=== PATIENT | male | born 1975 ===

== ENCOUNTER 2020-05-04 19:59 | Emergency (ER) | payer OTHER ==
[~2020-05-04] VITALS: Ht 177.8 cm; Wt 117.9 kg
[2020-05-04] MEDS ORDERED: LIPITOR40 MG PO (20:20)
[2020-05-04] MEDS ORDERED: FORTAMET500 MG PO (20:20)
[2020-05-04] MEDS ORDERED: ALTACE10 MG PO (20:21)
[2020-05-04] MEDS ORDERED: RESTORIL15 M1 (20:21)
== END 2020-05-05 00:01 | disposition home or self-care (01) ==
LOC: ER 19:59 → CPU-OBS 20:58 → ER 20:58
DX: J02.8 Acute pharyngitis due to other specified organisms (principal); R07.89 Other chest pain; Z20.822 Contact with and (suspected) exposure to COVID-19; S00.03XS Contusion of scalp, sequela; W22.8XXS Striking against or struck by other objects, sequela
CPT/HCPCS: 71250; 93005; 82805; 36600; G0378; G0379

== ENCOUNTER 2023-04-29 07:51 | Outpatient (CLI) | payer OTHER ==
[~2023-04-29 07:51] MED LIST: ALTACE10 MG PO; FORTAMET500 MG PO; LIPITOR40 MG PO; RESTORIL15 M1
== END 2023-04-29 08:00 | disposition home or self-care (01) ==
LOC: RAD 07:51
PROVIDERS: ATTEND Obstetrics & Gynecology Obstetrics
DX: M99.01 Segmental and somatic dysfunction of cervical region (principal); M99.02 Segmental and somatic dysfunction of thoracic region; M99.03 Segmental and somatic dysfunction of lumbar region; M99.04 Segmental and somatic dysfunction of sacral region; M99.05 Segmental and somatic dysfunction of pelvic region